=== PATIENT | male | born 1965 | race Caucasian/White ===

== ENCOUNTER → 2022-05-08 | Day surgery (SDC) | payer OTHER ==
[~2022-05-08] MED LIST: ATORVASTATIN CA20 MG PO; BUSPIRONE HCL5 MG PO; DICYCLOMINE HCL10 MG PO; FLOMAX0.4 MG PO; LISINOPRIL10 MG PO; MIDAZOLAM HCL 2 MG/2 ML VIAL ONE; NIFEDIPINE ER30 M1 PO; OMEPRAZOLE20 M1 PO; PROPOFOL IV EMULSION 10 MG/ML 20 ML VIAL ONE; PROPOFOL IV EMULSION 50 ML IV ONE; SERTRALINE HCL50 MG PO
[2022-05-08 15:25] VITALS: BP 142/86
== END | disposition home or self-care (01) ==
LOC: OR 11:52
PROVIDERS: ATTEND Internal Medicine Gastroenterology
DX: K29.50 Unspecified chronic gastritis without bleeding (principal); D12.3 Benign neoplasm of transverse colon; D12.4 Benign neoplasm of descending colon; K52.9 Noninfective gastroenteritis and colitis, unspecified; K21.9 Gastro-esophageal reflux disease without esophagitis; K44.9 Diaphragmatic hernia without obstruction or gangrene; K64.8 Other hemorrhoids; I10 Essential (primary) hypertension; E78.5 Hyperlipidemia, unspecified; I34.1 Nonrheumatic mitral (valve) prolapse; Z01.810 Encounter for preprocedural cardiovascular examination; Z79.899 Other long term (current) drug therapy; Z68.41 Body mass index [BMI] 40.0-44.9, adult
CPT/HCPCS: 43239; 45380; 45385; 93005; J2250; J2704 ×2; 45378